=== PATIENT | male | born 1960 ===

== ENCOUNTER 2017-01-08 07:17 | Day surgery (SDC) | payer MEDICAID ==
[2017-01-08 08:15] VITALS: BMI 26.4
[2017-01-08] MEDS ORDERED: Midazolam 2 MG/2 ML VIAL ONE (08:49)
[2017-01-08] MEDS ORDERED: Propofol 10 mg/ml Inj (20 ML) ONE ×2 (08:49→09:48)
[2017-01-08] MEDS ORDERED: Methylene Blue 10 mg/mL(10ml) IV ONE (09:32)
[2017-01-08] MEDS ORDERED: Lactated Ringer's 500 ML IV ONE (10:12)
[2017-01-08 10:22] VITALS: TEMP 97.5; O2SAT 100
[2017-01-08 10:50] VITALS: RESP 17
[2017-01-08 12:52] VITALS: BP 112/76; PULSE 58
== END 2017-01-08 12:50 | disposition home or self-care (01) ==
LOC: C.ENDO 07:17
PROVIDERS: ATTEND Internal Medicine Gastroenterology
DX: D12.4 Benign neoplasm of descending colon (principal); K51.90 Ulcerative colitis, unspecified, without complications; D12.5 Benign neoplasm of sigmoid colon
CPT/HCPCS: 45385; 88305; J2250; J2704; J7120

== ENCOUNTER 2017-02-12 16:50 | Emergency (ER) | payer MEDICAID ==
[2017-02-12 16:50] VITALS: BMI 26.4
[2017-02-12 17:11] VITALS: TEMP 98.6; O2SAT 100
--- NOTE | 2017-02-12 17:58 | C.PDOC ---
History Of Present Illness 56 y/o male, with PMHx of ulcerative colitis and thyroid disease, presents to ED for evaluation of suprapubic abdominal pain and hematuria for the last 2 days. Pt states that he was seen by PMD Dr. Gutierrez, and took the prescribed antibiotics with improvement. Pt states that symptoms recurred yesterday, and was seen by Dr. Gutierrez again who requested pt to report to ER for further evaluation. Denies having similar symptoms in the past. Pt denies back pain, n/v /d, back pain, fever, or chills. Time Seen by Provider: 02/12/17 17:44 Chief Complaint (Nursing): Male Genitourinary History Per: Patient History/Exam Limitations: no limitations Onset/Duration Of Symptoms: Days Current Symptoms Are (Timing): Still Present Quality Of Discomfort: "Pain" Associated Symptoms: Urinary Symptoms. denies: Fever, Chills, Nausea, Vomiting , Diarrhea, Loss Of Appetite, Back Pain, Chest Pain, Constipation Alleviating Factors: None Recent travel outside of the [place]: No Additional History Per: Patient Past Medical History Reviewed: Historical Data, Nursing Documentation, Vital Signs Vital Signs: Last Vital Signs Temp 98.6 F 02/12/17 17:07 Pulse 79 02/12/17 17:07 Resp 20 02/12/17 17:07 BP 132/84 02/12/17 17:07 Pulse Ox 100 02/12/17 18:03 - Medical History PMH: Colonic Polyps, Hypercholesterolemia, Hypothyroidism Denies: Fractures, Chronic Kidney Disease, TIA Surgical History: Denies: Endoscopy Family History: States: Unknown Family Hx - Social History Hx Alcohol Use: No Hx Substance Use: No - Immunization History Hx Tetanus Toxoid Vaccination: No Hx Influenza Vaccination: No Hx Pneumococcal Vaccination: No Review Of Systems Except As Marked, All Systems Reviewed And Found Negative. Constitutional: Negative for: Fever, Chills Cardiovascular: Negative for: Chest Pain, Palpitations Respiratory: Negative for: Cough, Shortness of Breath Gastrointestinal: Positive for: Abdominal Pain. Negative for: Nausea, Vomiting , Diarrhea, Constipation Genitourinary: Positive for: Hematuria. Negative for: Dysuria, Frequency, Penile Discharge, Scrotal Pain Musculoskeletal: Negative for: Back Pain Physical Exam - Physical Exam Appears: Non-toxic, No Acute Distress Skin: Normal Color, Warm, Dry Head: Atraumatic, Normacephalic Eye(s): bilateral: Normal Inspection, PERRL, EOMI Nose: Normal Oral Mucosa: Moist Neck: Normal ROM, Supple Chest: Symmetrical, No Tenderness Cardiovascular: Rhythm Regular, No Murmur Respiratory: Normal Breath Sounds, No Rales, No Rhonchi, No Wheezing Gastrointestinal/Abdominal: Bowel Sounds (normal), Soft, Tenderness (suprapubic) , No Distention, No Guarding, No Rebound Back: No CVA Tenderness Extremity: Normal ROM, No Pedal Edema Extremity: Bilateral: Atraumatic Neurological/Psych: Oriented x3, Normal Speech, Normal Cognition ED Course And Treatment - Laboratory Results Result Diagrams: 02/12/17 17:58 02/12/17 17:58 Lab Interpretation: Abnormal Interpretation Of Abnormal: Labs normal, urine + hematuria O2 Sat by Pulse Oximetry: 100 (RA) Pulse Ox Interpretation: Normal - CT Scan/US CT abdomen and pelvis Other Rad Studies (CT/US): Read By Radiologist, Radiology Report Reviewed CT/US Interpretation: Accession No. : [id number]. Patient Name / ID : JOSE MANUEL GODINEZ / [id number]. Exam Date : 02/12/2017 18:34:05 ( Approved ). Study Comment : Sex / Age : M / 56Y. Creator : Fredy Mariscal MD. Dictator : Fredy Mariscal MD. Home Health Care Case Manager : Heel Layer : Fredy Mariscal MD. Approver2 : Report Date : 02/12/2017 18:54:17. My Comment : . PROCEDURE: CT Abdomen and Pelvis without intravenous contrast. HISTORY: Flank pain bilaterally. COMPARISON: None. TECHNIQUE: Unenhanced study. Neither oral nor intravenous contrast administered. Radiation dose: Total exam DLP = 377.18 mGy-cm. This CT exam was performed using one or more of the following dose reduction techniques: Automated exposure control, adjustment of the mA and/or kV according to patient size, and/or use of iterative reconstruction technique. FINDINGS: LOWER THORAX: Unremarkable. LIVER: Unremarkable. No gross lesion or ductal dilatation. GALLBLADDER AND BILE DUCTS : Unremarkable. PANCREAS: Unremarkable. No gross lesion or ductal dilatation. SPLEEN: Unremarkable. ADRENALS: Unremarkable. No mass. KIDNEYS AND URETERS: Left kidney in ureter: Obstructive uropathy related to recently passed calculus in the urinary bladder near the left UVJ. This measures 2.5 mm. Additional tiny upper tract calculi identified on the left. Right kidney: Multiple nonobstructing calculi right kidney none larger than 3 mm. Right ureter is normal in caliber and course. VASCULATURE: Unremarkable. No aortic aneurysm. BOWEL: Diffuse thickening of the wall of the sigmoid colon and rectum and to lesser extent descending colon consistent with senescent colitis. No evidence of acute inflammatory changes in the colon. Constipation without fecal impaction or obstruction. APPENDIX: Unremarkable. Normal appendix. PERITONEUM: Unremarkable. No free fluid. No free air. LYMPH NODES: Unremarkable. No enlarged lymph nodes. BLADDER: Other than the recently passed calculus, no bladder abnormalities identified. REPRODUCTIVE: Mildly enlarged prostate. BONES: No acute fracture. OTHER FINDINGS: None. IMPRESSION: 1. Bilateral upper tract calculi none larger than 3 mm. 2. Dilated left collecting system and ureter related to recently passed calculus now residing in the urinary bladder adjacent to the left ureterovesical junction. 3. Additional benign and/or incidental findings described above. Progress Note: Blood work, UA, Abd & Pelvis CT ordered and reviewed. Reevaluation Time: 19:17 Reassessment Condition: Improved Disposition Counseled Patient/Family Regarding: Studies Performed, Diagnosis, Need For Followup - Disposition Referrals: Shaik Gutierrez MD [Staff Provider] - Disposition: HOME/ ROUTINE Disposition Time: 19:19 Condition: STABLE Prescriptions: Tamsulosin [Flomax] 0.4 mg PO DAILY #20 cap Instructions: Kidney Stones (ED) Forms: [facility] (Polish) - Clinical Impression Clinical Impression: Renal colic - Scribe Statement The provider has reviewed the documentation as recorded by the Aby Oron[place] All medical record entries made by the Bellaibyassine were at my direction and personally dictated by me. I have reviewed the chart and agree that the record accurately reflects my personal performance of the history, physical exam, medical decision making, and the department course for this patient. I have also personally directed, reviewed, and agree with the discharge instructions and disposition.
[2017-02-12 18:16] LABS: BASO # 0.1 K/uL (0.0-0.2); BASO % 0.8 % (0.0-2.0); EOS # 0.6 K/uL (0.0-0.7); EOS % 7.2 % (0.0-4.0); HEMATOCRIT 45.8 % (35.0-51.0); LYMPH # 3.7 K/uL (1.0-4.3); LYMPH % 44.2 % (20.0-40.0); MEAN CELL VOLUME 82.3 fL (80.0-94.0); MEAN CORPUSCULAR HEMOGLOBIN 26.5 pg (27.0-31.0); MEAN CORPUSCULAR HGB CONC 32.2 g/dL (33.0-37.0); MEAN PLATELET VOLUME 8.3 fL (7.2-11.7); MONO # 0.5 K/uL (0.0-0.8); MONO % 6.4 % (0.0-10.0); NRBC % 0.2 % (0.0-2.0); WHITE BLOOD COUNT 8.4 K/uL (4.8-10.8)
[2017-02-12 18:24] LABS: CHLORIDE 102 mmol/L (98-107); SODIUM 142 mmol/L (132-148)
[2017-02-12 18:27] LABS: ALB/GLOB RATIO 1.3 (1.0-2.1); ALKALINE PHOSPHATASE 77 U/L (38-126); ALT/SGPT 31 U/L (21-72); AST/SGOT 26 U/L (17-59); BILIRUBIN,TOTAL 0.7 mg/dL (0.2-1.3); BLOOD UREA NITROGEN 8 mg/dL (9-20); CALCIUM 9.7 mg/dl (8.6-10.4); CARBON DIOXIDE 23 mmol/L (22-30); GFR AFRICAN-AMERICAN > 60; GLUCOSE,RANDOM 81 mg/dL (75-110); TOTAL PROTEIN 7.5 g/dL (6.3-8.3)
--- NOTE | 2017-02-12 18:55 | CT ---
PROCEDURE: CT Abdomen and Pelvis without intravenous contrast HISTORY: Flank pain bilaterally. COMPARISON: None. TECHNIQUE: Unenhanced study. Neither oral nor intravenous contrast administered. Radiation dose: Total exam DLP = 377.18 mGy-cm. This CT exam was performed using one or more of the following dose reduction techniques: Automated exposure control, adjustment of the mA and/or kV according to patient size, and/or use of iterative reconstruction technique. FINDINGS: LOWER THORAX: Unremarkable. LIVER: Unremarkable. No gross lesion or ductal dilatation. GALLBLADDER AND BILE DUCTS: Unremarkable. PANCREAS: Unremarkable. No gross lesion or ductal dilatation. SPLEEN: Unremarkable. ADRENALS: Unremarkable. No mass. KIDNEYS AND URETERS: Left kidney in ureter: Obstructive uropathy related to recently passed calculus in the urinary bladder near the left UVJ. This measures 2.5 mm. Additional tiny upper tract calculi identified on the left. Right kidney: Multiple nonobstructing calculi right kidney none larger than 3 mm. Right ureter is normal in caliber and course. VASCULATURE: Unremarkable. No aortic aneurysm. BOWEL: Diffuse thickening of the wall of the sigmoid colon and rectum and to lesser extent descending colon consistent with senescent colitis. No evidence of acute inflammatory changes in the colon. Constipation without fecal impaction or obstruction. APPENDIX: Unremarkable. Normal appendix. PERITONEUM: Unremarkable. No free fluid. No free air. LYMPH NODES: Unremarkable. No enlarged lymph nodes. BLADDER: Other than the recently passed calculus, no bladder abnormalities identified. REPRODUCTIVE: Mildly enlarged prostate. BONES: No acute fracture. OTHER FINDINGS: None. IMPRESSION: 1. Bilateral upper tract calculi none larger than 3 mm. 2. Dilated left collecting system and ureter related to recently passed calculus now residing in the urinary bladder adjacent to the left ureterovesical junction. 3. Additional benign and/or incidental findings described above.
[2017-02-12 19:06] LABS: RBC URINE 33 /hpf (0-3); URINE BILIRUBIN NEGATIVE (NEGATIVE); URINE BLOOD 3+ (NEGATIVE); URINE COLOR Yellow (YELLOW); URINE GLUCOSE (UA) NORMAL (Normal); URINE KETONE NEGATIVE (NEGATIVE); URINE LEUKOCYTE ESTERASE NEG Leu/uL (Negative); URINE PROTEIN NEGATIVE (NEGATIVE); URINE UROBILINOGEN NORMAL mg/dL (0.2-1.0); WBC URINE 3 /hpf (0-5)
[2017-02-12 19:27] VITALS: BP 124/86; PULSE 71; RESP 16
== END 2017-02-12 19:43 | disposition home or self-care (01) ==
LOC: C.ER 16:50
DX: N20.0 Calculus of kidney (principal)

== ENCOUNTER 2017-08-21 07:55 | Day surgery (SDC) | payer MEDICAID ==
[2017-08-20 10:14] VITALS: BMI 21.6
[2017-08-21] MEDS ORDERED: Methylene Blue 10 mg/mL(10ml) IV ONE (10:12)
[2017-08-21] MEDS ORDERED: Lactated Ringer's 500 ML IV ONE ×2 (10:17)
--- NOTE | 2017-08-21 10:58 | CP.SDSHP ---
Same Day Surgery H & P - History Proposed Procedure: colonoscopy Pre-Op Diagnosis: ulcerative colitis - Previous Medical/Surgical History Endocrine/Metabolic: Thyroid Disease - Allergies Allergies: Allergies No Known Allergies Allergy (Verified 08/20/17 10:13) - Physical Exam General Appearance: NAD Vital Signs: Vital Signs 08/21/17 08:14 Temperature 98.4 F Pulse Rate 78 Respiratory 19 Rate Blood Pressure 129/78 O2 Sat by Pulse 100 Oximetry Mental Status: Alert & Oriented x3 Neuro: WNL Heart: WNL Lungs: WNL GI: WNL - {Optional Preform as Required} Abdomen: WNL - Impression Pt. Evaluated Today:Candidate for Anesthesia & Procedure: Yes - Date & Time Date: 08/21/17 Time: 10:58 Short Stay Discharge - Short Stay Discharge Admitting Diagnosis/Reason for Visit: ULCERATIVE COLITIS, UNSPECIFIED, WITHOUT COMPLICAT Disposition: HOME/ ROUTINE
[2017-08-21] MEDS ORDERED: Propofol 10 mg/ml Inj (20 ML) ONE ×2 (11:02)
[2017-08-21] MEDS ORDERED: Lidocaine Hydrochloride 5 ML INJ ONE (11:02)
[2017-08-21 12:03] VITALS: TEMP 98
[2017-08-21 12:08] VITALS: RESP 14; O2SAT 100
[2017-08-21 12:52] VITALS: BP 99/65; PULSE 61
== END 2017-08-21 12:50 | disposition home or self-care (01) ==
LOC: C.ENDO 07:55
PROVIDERS: ATTEND Internal Medicine Gastroenterology
DX: K51.50 Left sided colitis without complications (principal); E03.9 Hypothyroidism, unspecified; K62.89 Other specified diseases of anus and rectum; K63.5 Polyp of colon
CPT/HCPCS: 45380; 88305; J2704; J7120